=== PATIENT | female | born 1990 | race Two or more races ===

== ENCOUNTER 2019-01-20 10:47 | Inpatient (IN) | payer OTHER ==
[~2019-01-20] VITALS: Ht 154.9 cm; Wt 88.5 kg
[2019-02-14] MEDS ORDERED: PRENATAL TABLE1 EAC1 PO (03:19)
== END 2019-02-27 16:18 | disposition home or self-care (01) | DRG 807 ==
LOC: OB/GYN 02-16 14:15 → LDR 02-23 22:41 → OB/GYN 02-23 22:41 → LDR 02-24 02:10 → OB/GYN 02-25 15:21
PROVIDERS: ADMIT Obstetrics & Gynecology
PROC: 10E0XZZ Delivery of Products of Conception, External Approach (ICD-10-PCS; principal; 2019-02-25)
PROC: 3E033VJ Introduction of Other Hormone into Peripheral Vein, Percutaneous Approach (ICD-10-PCS; 2019-02-25)
PROC: 10907ZC Drainage of Amniotic Fluid, Therapeutic from Products of Conception, Via Natural or Artificial Opening (ICD-10-PCS; 2019-02-25)
PROC: 4A1HXCZ Monitoring of Products of Conception, Cardiac Rate, External Approach (ICD-10-PCS; 2019-02-25)
PROC: 0UQMXZZ Repair Vulva, External Approach (ICD-10-PCS; 2019-02-25)
DX: O71.82 Other specified trauma to perineum and vulva (principal); Z37.0 Single live birth; Z3A.39 39 weeks gestation of pregnancy; Z22.330 Carrier of Group B streptococcus

== ENCOUNTER 2019-02-14 02:03 | Outpatient (CLI) | payer OTHER ==
[2019-02-14] MEDS ORDERED: PRENATAL TABLE1 EAC1 PO (03:19)
== END 2019-02-14 12:56 | disposition home or self-care (01) ==
LOC: OBS/DEL 02:03
DX: O47.1 False labor at or after 37 completed weeks of gestation (principal)

== ENCOUNTER 2019-02-23 23:00 | Outpatient (CLI) | payer OTHER ==
[~2019-02-23 23:00] MED LIST: PRENATAL TABLE1 EAC1 PO
== END 2019-02-24 14:19 | disposition home or self-care (01) ==
LOC: OBS/DEL 23:00
DX: O47.1 False labor at or after 37 completed weeks of gestation (principal)

== ENCOUNTER 2019-10-12 05:18 | Day surgery (SDC) | payer OTHER | END 2019-10-12 17:45 | disposition home or self-care (01) | LOC: CIR.AMB 05:18 | PROVIDERS: ATTEND Obstetrics & Gynecology | DX: Z30.2 Encounter for sterilization (principal); Z20.828 Contact with and (suspected) exposure to other viral communicable diseases ==